=== PATIENT | male | born 1935 | race Caucasian/White ===

== ENCOUNTER 2016-09-17 11:13 | Outpatient (RCR) | payer MEDICARE, OTHER | END 2016-12-16 | disposition home or self-care (01) | LOC: LAB 11:13 | PROVIDERS: ATTEND Family Medicine | DX: Z51.81 Encounter for therapeutic drug level monitoring (principal); Z79.01 Long term (current) use of anticoagulants; I82.409 Acute embolism and thrombosis of unspecified deep veins of unspecified lower extremity | CPT/HCPCS: 36415; 85610 ==

== ENCOUNTER 2016-12-20 09:52 | Outpatient (RCR) | payer MEDICARE, OTHER ==
[~2016-12-20 09:52] MED LIST: ACET1TAB43 PO; ALBU8.5H4 IH; ASPI-860 PO; CLCX100C PO; CLOP75TA3 PO; DM/P295L13 PO; DOCU50CA2 PO; FAMO40TA6 PO; FEXO-142 PO; FLT11013 INH; FNST5T PO; FURO40TA4 PO; GFN600TCR PO; GUAI120013 PO; ISM60TCR PO; LOVA20TA2 PO; LOVA40TA2 PO; LSNP20T PO; MENT1LOZ4 MM; METO25TA60 PO; MG T1TAB PO; MV,M1TAB4 PO; NITR0.4T SL; OXYM15MI NS; OXYM22SP NS; PSEU120T53 PO; SIME80TA PO; SODI1TAB48 PO; WARF1TAB PO; WARF7.5T PO; WRF1T PO; WRF5T PO; [UNRECOGNIZED DRUG - OTHER]
== END 2017-03-14 08:01 | disposition home or self-care (01) ==
LOC: LAB 09:52
PROVIDERS: ATTEND Family Medicine
DX: Z51.81 Encounter for therapeutic drug level monitoring (principal); Z79.01 Long term (current) use of anticoagulants; I82.409 Acute embolism and thrombosis of unspecified deep veins of unspecified lower extremity
CPT/HCPCS: 36415; 85610

== ENCOUNTER 2017-03-14 08:02 | Outpatient (RCR) | payer MEDICARE, OTHER | END 2017-04-13 19:24 | disposition home or self-care (01) | LOC: LAB 08:02 | PROVIDERS: ATTEND Family Medicine | DX: Z51.81 Encounter for therapeutic drug level monitoring (principal); Z79.01 Long term (current) use of anticoagulants; I82.409 Acute embolism and thrombosis of unspecified deep veins of unspecified lower extremity | CPT/HCPCS: 36415; 85610 ==